=== PATIENT | female | born 1950 | race Asian ===

== ENCOUNTER 2019-03-26 13:07 | Outpatient (CLI) | payer MEDICARE ==
--- NOTE | 2019-03-26 13:51 | RAD ---
LUMBAR SPINE TWO VIEWS: 03/26/19 HISTORY: Dorsalgia. FINDINGS/IMPRESSION: Multilevel degenerative changes are present. There is compression of L1 vertebral body. No subluxatio n is seen. There is compression of L1 and T12 vertebral bodies (worse at L1). POS: OFF
--- NOTE | 2019-03-26 14:25 | RAD ---
RIGHT FOOT RADIOGRAPHS THREE VIEWS: 03/26/2019 PROVIDED CLINICAL HISTORY: Pain. FINDINGS: There is no evidence for fracture. Alignment appears anatomic. Joint spaces appear preserved. No l ytic or blastic lesions are seen. Plantar calcaneal enthesophyte formation is noted. IMPRESSION: 1. No evidence for an acute osseous abnormality or significant arthropathy. 2. Plantar calcaneal enthesophyte formation. POS: TPC
== END 2019-03-26 13:08 | disposition home or self-care (01) ==
LOC: BICRAD 13:07
PROVIDERS: ATTEND Family Medicine
DX: M79.671 Pain in right foot (principal); M77.31 Calcaneal spur, right foot
CPT/HCPCS: 72100

== ENCOUNTER 2019-03-29 12:26 | Outpatient (CLI) | payer MEDICARE ==
--- NOTE | 2019-03-29 13:13 | MMO ---
Bilateral MAMMO Bilat Screen [facility]. CLINICAL HISTORY: Patient is 69 years old and is seen for screening. The patient has no family history of breast cancer. The patient has no personal history of cancer. VIEWS: The views performed were: bilateral craniocaudal with tomosynthesis and bilateral mediolateral oblique with tomosynthesis. MAMMOGRAM FINDINGS: The breasts are heterogeneously dense, which could obscure a lesion on mammography. There are stable benign appearing calcifications seen in both breasts. There are also vascular calcifications. There are no suspicious masses, suspicious calcifications, or new areas of architectural distortion. IMPRESSION: THERE IS NO MAMMOGRAPHIC EVIDENCE OF MALIGNANCY. A ROUTINE FOLLOW-UP MAMMOGRAM IN 1 YEAR IS RECOMMENDED. THE RESULTS OF THIS EXAM WERE SENT TO THE PATIENT. ACR BI-RADS Category 2 - Benign finding MAMMOGRAPHY NOTE: 1. A negative mammogram report should not delay a biopsy if a dominant of clinically suspicious mass is present. 2. Approximately 10% to 15% of breast cancers are not detected by mammography. 3. Adenosis and dense breasts may obscure an underlying neoplasm. Reported by: CAITLIN MOULTON MD Electonically Signed: [id number]
--- NOTE | 2019-03-29 13:45 | BD ---
DEXA BONE MINERAL DENSITY STUDY: Date: 03/29/19 HISTORY: Osteoporosis screening. COMPARISON: None. FINDINGS: Lumbar Spine: BMD (g/cm2) L1 0.799 T-Score: -1.7 Z-Score: 0.1 L2 0.915 T-Score: -1.0 Z-Score: 1.0 L3 0.886 T-Score: -1.8 Z-Score: 0.4 L4 0.665 T-Score: -3.6 Z-Score: -1.3 L1-L4 0.812 T-Score: -2.1 Z-Score: 0.0 WHO Classification: Osteopenia. Left Femoral Neck: 0.645 T-Score: -1.8 Z-Score: 0.0 Total Femur: 0.775 T-Score: -1.4 Z-Score: 0.1 WHO Classification: Osteopenia. 10 YEAR FRACTURE RISK: Major osteoporotic fracture: 5.6% Hip fracture: 1% IMPRESSION: Osteopenia with elevated fracture risk as above. POS: JUDY
== END 2019-03-29 12:27 | disposition home or self-care (01) ==
LOC: BICMAMMO 12:26
PROVIDERS: ATTEND Family Medicine
DX: Z12.31 Encounter for screening mammogram for malignant neoplasm of breast (principal); Z13.820 Encounter for screening for osteoporosis
CPT/HCPCS: 77063; 77067; 77080